=== PATIENT | female | born 1970 | race Caucasian/White ===

== ENCOUNTER 2020-02-17 15:18 | Emergency (ER) | payer MEDICAID ==
[~2020-02-17] VITALS: Ht 165.1 cm; Wt 55.0 kg
[2020-02-17 15:25] VITALS: BP 133/75
[2020-02-17] MEDS ORDERED: IBUPROFEN 600MG TABLET PO STA (17:32)
== END 2020-02-17 19:02 | disposition home or self-care (01) ==
LOC: ER 15:18
DX: M25.522 Pain in left elbow (principal)
CPT/HCPCS: 73080; 73090; 81025; 99284

== ENCOUNTER 2021-02-04 22:30 | Emergency (ER) | payer MEDICAID ==
[~2021-02-04] VITALS: Ht 162.6 cm; Wt 81.0 kg
[2021-02-05] MEDS ORDERED: HYDROCODONE/ACETAMINOPHEN 5/325MG TABLET PO NR (04:45)
[2021-02-05 06:09] VITALS: BP 128/78
== END 2021-02-05 06:36 | disposition home or self-care (01) ==
LOC: ER 22:30
DX: N64.4 Mastodynia (principal); I10 Essential (primary) hypertension
CPT/HCPCS: 76641; 99284